=== PATIENT | male | born 1985 | race Caucasian/White ===

== ENCOUNTER 2018-01-11 23:26 | Emergency (ER) | payer SELFPAY ==
[~2018-01-11] VITALS: Ht 172.7 cm; Wt 77.3 kg
[2018-01-12 04:54] LABS: BASOPHILS % (AUTO) 0.8 % (0.0-2.0); EOSINOPHILS % (AUTO) 0.8 % (1.0-6.0); HEMATOCRIT 41.3 % (41-53); HEMOGLOBIN 14.2 g/dL (13.5-17.5); LYMPHOCYTES # (AUTO) 2.1 K/uL (1.0-4.8); LYMPHOCYTES % (AUTO) 24.8 % (22.0-44.0); MEAN CORPUSCULAR HEMOGLOBIN 28.9 pg (26.0-34.0); MEAN CORPUSCULAR HGB CONC 34.3 G/dL (31.0-37.0); MEAN CORPUSCULAR VOLUME 84 fL (80-100); MONOCYTES # (AUTO) 0.9 K/uL (0.1-1.0); MONOCYTES % (AUTO) 10.9 % (2.0-9.0); NEUTROPHILS # (AUTO) 5.4 K/uL (1.8-7.7); NEUTROPHILS % (AUTO) 62.7 % (40.0-70.0); PLATELET COUNT (AUTO) 241 K/uL (150-450); RED CELL DISTRIBUTION WIDTH 13.6 % (11.5-14.5)
[2018-01-12 05:03] LABS: ANION GAP 8 mmol/L (8-16); CALCIUM, TOTAL 9.8 mg/dL (8.8-10.5); CARBON DIOXIDE 33 mmol/L (22-29); CHLORIDE 98 mmol/L (98-107); CREATININE 0.79 mg/dL (0.60-1.30); GLOMERULAR FILTR. RATE CALC > 60 mL/min (>60); GLUCOSE,RANDOM 90 mg/dL (70-110); SODIUM SERUM 139 mmol/L (136-145); UREA NITROGEN, BLOOD 13 mg/dL (7-18)
[2018-01-12 05:25] VITALS: BP 121/76
== END 2018-01-12 05:29 | disposition home or self-care (01) ==
LOC: EMS 23:28
DX: R10.84 Generalized abdominal pain (principal); S90.829A Blister (nonthermal), unspecified foot, initial encounter; X58.XXXA Exposure to other specified factors, initial encounter; Y93.89 Activity, other specified; Y92.89 Other specified places as the place of occurrence of the external cause; Y99.8 Other external cause status
CPT/HCPCS: 99284

== ENCOUNTER 2018-02-01 18:14 | Inpatient (IN) | payer MEDICAID ==
[~2018-02-01] VITALS: Ht 165.1 cm; Wt 66.7 kg
[2018-02-01 19:04] LABS: BASOPHILS % (AUTO) 0.6 % (0.0-2.0); EOSINOPHILS % (AUTO) 0.4 % (1.0-6.0); HEMATOCRIT 39.5 % (41-53); HEMOGLOBIN 13.4 g/dL (13.5-17.5); LYMPHOCYTES # (AUTO) 1.8 K/uL (1.0-4.8); LYMPHOCYTES % (AUTO) 17.6 % (22.0-44.0); MEAN CORPUSCULAR HEMOGLOBIN 28.6 pg (26.0-34.0); MEAN CORPUSCULAR HGB CONC 33.9 G/dL (31.0-37.0); MEAN CORPUSCULAR VOLUME 85 fL (80-100); MONOCYTES % (AUTO) 9.8 % (2.0-9.0); NEUTROPHILS # (AUTO) 7.4 K/uL (1.8-7.7); NEUTROPHILS % (AUTO) 71.6 % (40.0-70.0); PLATELET COUNT (AUTO) 320 K/uL (150-450); RED BLOOD CELL COUNT(AUTO) 4.68 MIL/uL (4.50-5.90); RED CELL DISTRIBUTION WIDTH 13.9 % (11.5-14.5)
[2018-02-01 19:15] LABS: ANION GAP 8 mmol/L (8-16); CALCIUM, TOTAL 9.6 mg/dL (8.8-10.5); CARBON DIOXIDE 30 mmol/L (22-29); CHLORIDE 106 mmol/L (98-107); CREATININE 0.67 mg/dL (0.60-1.30); GLOMERULAR FILTR. RATE CALC > 60 mL/min (>60); GLUCOSE,RANDOM 87 mg/dL (70-110); POTASSIUM 3.3 mmol/L (3.5-5.1); SODIUM SERUM 144 mmol/L (136-145); UREA NITROGEN, BLOOD 33 mg/dL (7-18)
[2018-02-01 19:21] LABS: ALANINE AMINOTRANSFERASE 42 U/L (12-78); ALBUMIN 4.2 g/dL (3.4-5.0); ALKALINE PHOSPHATASE 81 U/L (46-116); ASPARTATE AMINOTRANSFERASE 43 U/L (15-37); BILIRUBIN,TOTAL 0.6 mg/dL (0.1-1.0); TOTAL PROTEIN, SERUM 7.6 g/dL (6.4-8.2)
[2018-02-01] MEDS: POTASSIUM CHLORIDE 20 MEQ ER TABLET PO ONE ×2 (19:50→19:51)
[2018-02-01] MEDS ORDERED: MAGNESIUM HYDROXIDE SUSPENSION 30 ML UDCUP PO PRN (20:00)
[2018-02-01] MEDS ORDERED: MAG HYDROX/AL HYDROX/SIMETH ES 30 ML SUSPENSION UDCUP PO PRN (20:00)
[2018-02-01 21:55] VITALS: BP 112/71
[2018-02-01] MEDS ORDERED: INFLUENZA VIRUS VACCINE QVS 2017-18 (3YR+)/PF 60 MCG/0.5 ML SYRINGE IM ONE (22:00)
[2018-02-02 07:25] VITALS: BP 114/65
[2018-02-02 08:10] VITALS: BP 127/77
[2018-02-02 08:58] LABS: CHOL/HDL RATIO 2.4 (4.2-7.3)
[2018-02-02] MEDS: ARIPiprazole 10 MG TABLET PO SCH ×2 (09:00→10:27)
[2018-02-02] MEDS: HALOPERIDOL 5 MG TABLET PO PRN (10:29)
[2018-02-02] MEDS: LORazepam 2 MG TABLET PO PRN (16:06)
[2018-02-02 16:13] VITALS: BP 118/75
[2018-02-02] MEDS ORDERED: POTASSIUM CHLORIDE 20 MEQ ER TABLET PO ONE (17:15)
[2018-02-02] MEDS: ZOLPIDEM TARTRATE 10 MG TABLET PO PRN (20:48)
[2018-02-03 03:54] VITALS: BP 124/93
[2018-02-03 08:02] VITALS: BP 133/81
[2018-02-03 16:02] VITALS: BP 121/73
[2018-02-03] MEDS: LORazepam 2 MG TABLET PO PRN (16:31)
[2018-02-03] MEDS: HALOPERIDOL 5 MG TABLET PO PRN (16:31)
[2018-02-04 02:37] VITALS: BP 122/68
[2018-02-04] MEDS: HALOPERIDOL 5 MG TABLET PO PRN ×3 (04:18→17:15)
[2018-02-04] MEDS: LORazepam 2 MG TABLET PO PRN ×3 (04:18→17:15)
[2018-02-04] MEDS: ACETAMINOPHEN 325 MG TABLET PO PRN ×2 (04:19→08:46)
[2018-02-04 08:09] VITALS: BP 142/63
[2018-02-04] MEDS: ARIPiprazole 10 MG TABLET PO SCH (08:41)
[2018-02-04 16:17] VITALS: BP 119/69
[2018-02-05] MEDS: LORazepam 2 MG TABLET PO PRN ×3 (00:43→16:05)
[2018-02-05 01:13] VITALS: BP 108/60
[2018-02-05] MEDS: ARIPiprazole 10 MG TABLET PO SCH (08:02)
[2018-02-05 08:04] VITALS: BP 130/72
[2018-02-05 16:01] VITALS: BP 116/61
[2018-02-05] MEDS: HALOPERIDOL 5 MG TABLET PO PRN (16:05)
[2018-02-05] MEDS ORDERED: DiphenhydrAMINE HCL 50 MG/ML VIAL ONE (16:08)
[2018-02-05] MEDS ORDERED: HALOPERIDOL LACTATE 5 MG/ML VIAL ONE (16:08)
[2018-02-05] MEDS ORDERED: LORazepam 2 MG/ML VIAL ONE (16:08)
[2018-02-05] MEDS ORDERED: LORazepam 2 MG/ML VIAL IM ONE (16:15)
[2018-02-05] MEDS ORDERED: HALOPERIDOL LACTATE 5 MG/ML VIAL IM ONE (16:15)
[2018-02-05] MEDS ORDERED: DiphenhydrAMINE HCL 50 MG/ML VIAL IM ONE (16:15)
[2018-02-05] MEDS: DIVALPROEX SODIUM 500 MG DR TABLET PO SCH (21:00)
[2018-02-05] MEDS: ZOLPIDEM TARTRATE 10 MG TABLET PO PRN (21:52)
[2018-02-06 01:42] VITALS: BP 108/64
[2018-02-06] MEDS: ARIPiprazole 10 MG TABLET PO SCH ×2 (08:10→10:50)
[2018-02-06] MEDS: DIVALPROEX SODIUM 500 MG DR TABLET PO SCH ×2 (08:10→20:20)
[2018-02-06 08:30] VITALS: BP 128/87
[2018-02-06] MEDS ORDERED: HALOPERIDOL LACTATE 5 MG/ML VIAL ONE ×2 (11:22)
[2018-02-06] MEDS ORDERED: LORazepam 2 MG/ML VIAL ONE (11:22)
[2018-02-06] MEDS ORDERED: DiphenhydrAMINE HCL 50 MG/ML VIAL ONE (11:23)
[2018-02-06] MEDS ORDERED: HALOPERIDOL LACTATE 5 MG/ML VIAL IM ONE ×2 (12:00→15:45)
[2018-02-06] MEDS ORDERED: LORazepam 2 MG/ML VIAL IM ONE ×2 (12:00→15:45)
[2018-02-06] MEDS ORDERED: DiphenhydrAMINE HCL 50 MG/ML VIAL IM ONE ×2 (12:00→15:45)
[2018-02-06 13:23] VITALS: BP 112/64
[2018-02-06 16:00] VITALS: BP 110/66
[2018-02-06] MEDS: LORazepam 2 MG TABLET PO PRN (20:20)
[2018-02-06] MEDS: ZOLPIDEM TARTRATE 10 MG TABLET PO PRN (20:20)
[2018-02-07 05:10] VITALS: BP 109/72
[2018-02-07 08:00] VITALS: BP 140/64
[2018-02-07] MEDS: ARIPiprazole 10 MG TABLET PO SCH (08:29)
[2018-02-07] MEDS: HALOPERIDOL 5 MG TABLET PO PRN ×2 (08:29→16:33)
[2018-02-07] MEDS: LORazepam 2 MG TABLET PO PRN ×2 (08:29→16:33)
[2018-02-07] MEDS: DIVALPROEX SODIUM 500 MG DR TABLET PO SCH ×2 (08:29→21:00)
[2018-02-07 08:42] LABS: BASOPHILS % (AUTO) 0.7 % (0.0-2.0); EOSINOPHILS % (AUTO) 0.8 % (1.0-6.0); HEMATOCRIT 42.8 % (41-53); HEMOGLOBIN 14.4 g/dL (13.5-17.5); LYMPHOCYTES # (AUTO) 1.1 K/uL (1.0-4.8); LYMPHOCYTES % (AUTO) 16.3 % (22.0-44.0); MEAN CORPUSCULAR HEMOGLOBIN 28.9 pg (26.0-34.0); MEAN CORPUSCULAR HGB CONC 33.5 G/dL (31.0-37.0); MEAN CORPUSCULAR VOLUME 86 fL (80-100); MONOCYTES # (AUTO) 0.5 K/uL (0.1-1.0); MONOCYTES % (AUTO) 7.5 % (2.0-9.0); NEUTROPHILS # (AUTO) 5.2 K/uL (1.8-7.7); NEUTROPHILS % (AUTO) 74.7 % (40.0-70.0); PLATELET COUNT (AUTO) 294 K/uL (150-450); RED BLOOD CELL COUNT(AUTO) 4.97 MIL/uL (4.50-5.90)
[2018-02-07 09:11] LABS: ANION GAP 7 mmol/L (8-16); CALCIUM, TOTAL 9.4 mg/dL (8.8-10.5); CARBON DIOXIDE 32 mmol/L (22-29); CHLORIDE 102 mmol/L (98-107); CREATININE 0.67 mg/dL (0.60-1.30); GLOMERULAR FILTR. RATE CALC > 60 mL/min (>60); GLUCOSE,RANDOM 102 mg/dL (70-110); POTASSIUM 4.9 mmol/L (3.5-5.1); SODIUM SERUM 141 mmol/L (136-145); UREA NITROGEN, BLOOD 20 mg/dL (7-18)
[2018-02-07 16:00] VITALS: BP 119/67
[2018-02-08 00:38] VITALS: BP 122/71
[2018-02-08 08:04] VITALS: BP 129/88
[2018-02-08] MEDS: ARIPiprazole 15 MG TABLET PO SCH (08:04)
[2018-02-08] MEDS: DIVALPROEX SODIUM 500 MG DR TABLET PO SCH (08:04)
[2018-02-08] MEDS: LORazepam 2 MG TABLET PO PRN ×2 (13:17→17:18)
[2018-02-08] MEDS: HALOPERIDOL 5 MG TABLET PO PRN ×2 (13:17→17:18)
[2018-02-08 16:00] VITALS: BP 135/76
[2018-02-09 00:58] VITALS: BP 108/69
[2018-02-09] MEDS: LORazepam 2 MG TABLET PO PRN ×3 (08:19→17:35)
[2018-02-09] MEDS: HALOPERIDOL 5 MG TABLET PO PRN ×3 (08:19→17:35)
[2018-02-09] MEDS: ARIPiprazole 15 MG TABLET PO SCH (08:19)
[2018-02-09 08:27] VITALS: BP 110/72
[2018-02-09 16:00] VITALS: BP 116/69
[2018-02-09] MEDS ORDERED: HALOPERIDOL LACTATE 5 MG/ML VIAL IM ONE ×2 (18:00→18:15)
[2018-02-09] MEDS ORDERED: DiphenhydrAMINE HCL 50 MG/ML VIAL IM ONE ×2 (18:00→18:15)
[2018-02-09] MEDS ORDERED: LORazepam 2 MG/ML VIAL IM ONE ×2 (18:00→18:15)
[2018-02-09] MEDS ORDERED: DiphenhydrAMINE HCL 50 MG/ML VIAL ONE (18:07)
[2018-02-09] MEDS ORDERED: LORazepam 2 MG/ML VIAL ONE (18:07)
[2018-02-09] MEDS ORDERED: HALOPERIDOL LACTATE 5 MG/ML VIAL ONE (18:07)
[2018-02-10 08:14] VITALS: BP 114/67
[2018-02-10] MEDS: ARIPiprazole 15 MG TABLET PO SCH ×2 (08:17→09:40)
[2018-02-10 16:00] VITALS: BP 121/72
[2018-02-10] MEDS: HALOPERIDOL 5 MG TABLET PO PRN (16:11)
[2018-02-10] MEDS: LORazepam 2 MG TABLET PO PRN ×2 (16:11→20:21)
[2018-02-10] MEDS: ZOLPIDEM TARTRATE 10 MG TABLET PO PRN (20:21)
[2018-02-11 05:42] VITALS: BP 106/64
[2018-02-11 08:00] VITALS: BP 131/69
[2018-02-11] MEDS: ARIPiprazole 15 MG TABLET PO SCH (08:23)
[2018-02-11] MEDS ORDERED: DiphenhydrAMINE HCL 50 MG/ML VIAL ONE (15:55)
[2018-02-11] MEDS ORDERED: LORazepam 2 MG/ML VIAL ONE (15:55)
[2018-02-11] MEDS ORDERED: HALOPERIDOL LACTATE 5 MG/ML VIAL ONE (15:55)
[2018-02-11 16:00] VITALS: BP 124/63
[2018-02-11] MEDS ORDERED: HALOPERIDOL LACTATE 5 MG/ML VIAL IM ONE (16:00)
[2018-02-11] MEDS ORDERED: DiphenhydrAMINE HCL 50 MG/ML VIAL IM ONE (16:00)
[2018-02-11] MEDS ORDERED: LORazepam 2 MG/ML VIAL IM ONE (16:00)
[2018-02-11] MEDS: LORazepam 2 MG TABLET PO PRN (20:20)
[2018-02-11] MEDS: HALOPERIDOL 5 MG TABLET PO PRN (20:20)
[2018-02-12 06:08] VITALS: BP 124/71
[2018-02-12] MEDS: HALOPERIDOL 5 MG TABLET PO PRN ×2 (08:01→16:21)
[2018-02-12] MEDS: ARIPiprazole 15 MG TABLET PO SCH (08:01)
[2018-02-12 08:10] VITALS: BP 128/74
[2018-02-12 16:00] VITALS: BP 128/70
[2018-02-12] MEDS: LORazepam 2 MG TABLET PO PRN (16:21)
[2018-02-13 05:21] VITALS: BP 112/85
[2018-02-13 08:22] VITALS: BP 122/72
[2018-02-13] MEDS: ARIPiprazole 15 MG TABLET PO SCH (09:14)
[2018-02-13 16:00] VITALS: BP 121/77
[2018-02-13] MEDS: ZOLPIDEM TARTRATE 10 MG TABLET PO PRN (20:42)
[2018-02-13] MEDS: HALOPERIDOL 5 MG TABLET PO PRN (20:42)
[2018-02-13] MEDS: LORazepam 2 MG TABLET PO PRN (20:42)
[2018-02-14 01:17] VITALS: BP 130/88
[2018-02-14] MEDS: ARIPiprazole 15 MG TABLET PO SCH (08:03)
[2018-02-14 08:11] VITALS: BP 128/86
[2018-02-14] MEDS ORDERED: DiphenhydrAMINE HCL 50 MG/ML VIAL IM ONE (11:30)
[2018-02-14] MEDS ORDERED: LORazepam 2 MG/ML VIAL IM ONE (11:30)
[2018-02-14] MEDS ORDERED: HALOPERIDOL LACTATE 5 MG/ML VIAL IM ONE (11:30)
[2018-02-14] MEDS: LORazepam 2 MG TABLET PO PRN (19:35)
[2018-02-14] MEDS: HALOPERIDOL 5 MG TABLET PO PRN (19:35)
[2018-02-14] MEDS: ZOLPIDEM TARTRATE 10 MG TABLET PO PRN (20:58)
[2018-02-15 01:22] VITALS: BP 117/66
[2018-02-15] MEDS: ARIPiprazole 15 MG TABLET PO SCH (08:26)
[2018-02-15 08:32] VITALS: BP 127/64
[2018-02-15] MEDS: LORazepam 2 MG TABLET PO PRN (10:32)
[2018-02-15] MEDS: HALOPERIDOL 5 MG TABLET PO PRN ×2 (10:32→18:28)
[2018-02-15 16:59] VITALS: BP 136/61
[2018-02-15] MEDS ORDERED: DiphenhydrAMINE HCL 50 MG/ML VIAL ONE (18:43)
[2018-02-15] MEDS ORDERED: HALOPERIDOL LACTATE 5 MG/ML VIAL ONE (18:43)
[2018-02-15] MEDS ORDERED: LORazepam 2 MG/ML VIAL ONE (18:43)
[2018-02-15] MEDS ORDERED: DiphenhydrAMINE HCL 50 MG/ML VIAL IM ONE (18:45)
[2018-02-15] MEDS ORDERED: HALOPERIDOL LACTATE 5 MG/ML VIAL IM ONE (18:45)
[2018-02-15] MEDS ORDERED: LORazepam 2 MG/ML VIAL IM ONE (18:45)
[2018-02-16 03:24] VITALS: BP 122/69
[2018-02-16 08:32] VITALS: BP 128/71
[2018-02-16] MEDS: ARIPiprazole 15 MG TABLET PO SCH (09:01)
[2018-02-16 16:31] VITALS: BP 122/73
[2018-02-16] MEDS: ZOLPIDEM TARTRATE 10 MG TABLET PO PRN (23:02)
[2018-02-17 04:01] VITALS: BP 127/84
[2018-02-17 08:16] VITALS: BP 122/62
[2018-02-17] MEDS: ARIPiprazole 15 MG TABLET PO SCH (09:25)
[2018-02-17] MEDS: HALOPERIDOL 5 MG TABLET PO PRN (16:20)
[2018-02-17] MEDS: LORazepam 2 MG TABLET PO PRN (16:20)
[2018-02-17] MEDS: LITHIUM CARBONATE 300 MG CAPSULE PO SCH (16:20)
[2018-02-17 16:30] VITALS: BP 131/88
[2018-02-17] MEDS ORDERED: LORazepam 2 MG/ML VIAL ONE (18:25)
[2018-02-17] MEDS ORDERED: HALOPERIDOL LACTATE 5 MG/ML VIAL ONE (18:25)
[2018-02-17] MEDS ORDERED: DiphenhydrAMINE HCL 50 MG/ML VIAL ONE (18:25)
[2018-02-17] MEDS ORDERED: DiphenhydrAMINE HCL 50 MG/ML VIAL IM ONE (18:45)
[2018-02-17] MEDS ORDERED: LORazepam 2 MG/ML VIAL IM ONE (18:45)
[2018-02-17] MEDS ORDERED: HALOPERIDOL LACTATE 5 MG/ML VIAL IM ONE (18:45)
[2018-02-18 01:24] VITALS: BP 113/68
[2018-02-18] MEDS: LITHIUM CARBONATE 300 MG CAPSULE PO SCH ×2 (08:04→16:02)
[2018-02-18] MEDS: ARIPiprazole 15 MG TABLET PO SCH (08:04)
[2018-02-18 08:13] VITALS: BP 132/81
[2018-02-18] MEDS ORDERED: HALOPERIDOL LACTATE 5 MG/ML VIAL ONE (08:26)
[2018-02-18] MEDS ORDERED: DiphenhydrAMINE HCL 50 MG/ML VIAL ONE (08:26)
[2018-02-18] MEDS ORDERED: LORazepam 2 MG/ML VIAL ONE (08:27)
[2018-02-18] MEDS ORDERED: LORazepam 2 MG/ML VIAL IM ONE (08:30)
[2018-02-18] MEDS ORDERED: HALOPERIDOL LACTATE 5 MG/ML VIAL IM ONE (08:30)
[2018-02-18] MEDS ORDERED: DiphenhydrAMINE HCL 50 MG/ML VIAL IM ONE (08:30)
[2018-02-18] MEDS: LORazepam 2 MG TABLET PO PRN (16:02)
[2018-02-18] MEDS: HALOPERIDOL 5 MG TABLET PO PRN (16:02)
[2018-02-18 16:36] VITALS: BP 116/60
[2018-02-19] MEDS: ZOLPIDEM TARTRATE 10 MG TABLET PO PRN (00:45)
[2018-02-19] MEDS: HALOPERIDOL 5 MG TABLET PO PRN ×3 (00:45→16:53)
[2018-02-19] MEDS: LORazepam 2 MG TABLET PO PRN ×3 (00:45→16:53)
[2018-02-19 07:05] VITALS: BP 140/83
[2018-02-19 08:41] VITALS: BP 127/74
[2018-02-19] MEDS: LITHIUM CARBONATE 300 MG CAPSULE PO SCH ×2 (08:45→16:53)
[2018-02-19] MEDS: ARIPiprazole 15 MG TABLET PO SCH (08:45)
[2018-02-19] MEDS ORDERED: DiphenhydrAMINE HCL 50 MG/ML VIAL ONE (08:59)
[2018-02-19] MEDS ORDERED: HALOPERIDOL LACTATE 5 MG/ML VIAL ONE (08:59)
[2018-02-19] MEDS ORDERED: LORazepam 2 MG/ML VIAL ONE (09:00)
[2018-02-19] MEDS ORDERED: DiphenhydrAMINE HCL 50 MG/ML VIAL IM ONE ×2 (09:00→18:45)
[2018-02-19] MEDS ORDERED: LORazepam 2 MG/ML VIAL IM ONE ×2 (09:00→18:45)
[2018-02-19] MEDS ORDERED: HALOPERIDOL LACTATE 5 MG/ML VIAL IM ONE ×2 (09:00→18:45)
[2018-02-19 16:00] VITALS: BP 121/72
[2018-02-20 05:50] VITALS: BP 122/79
[2018-02-20] MEDS: LORazepam 2 MG TABLET PO PRN (06:11)
[2018-02-20] MEDS: HALOPERIDOL 5 MG TABLET PO PRN (06:11)
[2018-02-20 08:11] VITALS: BP 113/74
[2018-02-20] MEDS: LITHIUM CARBONATE 300 MG CAPSULE PO SCH ×2 (09:00→17:00)
[2018-02-20] MEDS: ARIPiprazole 15 MG TABLET PO SCH (09:00)
[2018-02-20 21:06] VITALS: BP 118/72
[2018-02-21 03:57] VITALS: BP 123/69
[2018-02-21 08:55] VITALS: BP 130/78
[2018-02-21] MEDS: LITHIUM CARBONATE 600 MG CAPSULE PO SCH ×2 (09:00→16:42)
[2018-02-21] MEDS: ARIPiprazole 15 MG TABLET PO SCH (09:00)
[2018-02-21 16:01] VITALS: BP 108/66
[2018-02-21] MEDS: HALOPERIDOL 5 MG TABLET PO PRN (16:42)
[2018-02-21] MEDS: LORazepam 2 MG TABLET PO PRN (16:42)
[2018-02-21] MEDS: ZOLPIDEM TARTRATE 10 MG TABLET PO PRN (20:18)
[2018-02-22 04:32] VITALS: BP 132/77
[2018-02-22 08:09] VITALS: BP 130/73
[2018-02-22] MEDS: LITHIUM CARBONATE 600 MG CAPSULE PO SCH ×2 (08:42→16:23)
[2018-02-22] MEDS: ARIPiprazole 15 MG TABLET PO SCH (08:43)
[2018-02-22] MEDS ORDERED: LORazepam 2 MG/ML VIAL IM ONE (10:15)
[2018-02-22] MEDS ORDERED: DiphenhydrAMINE HCL 50 MG/ML VIAL IM ONE (10:15)
[2018-02-22] MEDS ORDERED: HALOPERIDOL LACTATE 5 MG/ML VIAL IM ONE (10:15)
[2018-02-22 10:45] VITALS: BP 110/60
[2018-02-22 16:19] VITALS: BP 125/78
[2018-02-22] MEDS: LORazepam 2 MG TABLET PO PRN ×2 (16:23→20:43)
[2018-02-22] MEDS: HALOPERIDOL 5 MG TABLET PO PRN (16:23)
[2018-02-22] MEDS: ZOLPIDEM TARTRATE 10 MG TABLET PO PRN (20:43)
[2018-02-23 04:14] VITALS: BP 124/65
[2018-02-23 08:29] VITALS: BP 134/83
[2018-02-23] MEDS: LORazepam 2 MG TABLET PO PRN ×3 (09:01→17:07)
[2018-02-23] MEDS: HALOPERIDOL 5 MG TABLET PO PRN ×3 (09:01→17:07)
[2018-02-23] MEDS: LITHIUM CARBONATE 600 MG CAPSULE PO SCH ×2 (09:01→17:07)
[2018-02-23] MEDS: ARIPiprazole 15 MG TABLET PO SCH (09:01)
[2018-02-23 16:18] VITALS: BP 119/78
[2018-02-24 02:00] VITALS: BP 134/72
[2018-02-24 08:17] VITALS: BP 132/82
[2018-02-24] MEDS: LITHIUM CARBONATE 600 MG CAPSULE PO SCH ×2 (08:42→17:09)
[2018-02-24] MEDS: ARIPiprazole 15 MG TABLET PO SCH (08:42)
[2018-02-24 16:05] VITALS: BP 114/75
[2018-02-24] MEDS: LORazepam 2 MG TABLET PO PRN (17:09)
[2018-02-24] MEDS: HALOPERIDOL 5 MG TABLET PO PRN (17:09)
[2018-02-24] MEDS: ZOLPIDEM TARTRATE 10 MG TABLET PO PRN (20:54)
[2018-02-25 03:48] VITALS: BP 111/69
[2018-02-25 08:19] VITALS: BP 115/74
[2018-02-25] MEDS: LITHIUM CARBONATE 600 MG CAPSULE PO SCH ×2 (09:53→16:20)
[2018-02-25] MEDS: ARIPiprazole 15 MG TABLET PO SCH (09:53)
[2018-02-25 16:05] VITALS: BP 117/69
[2018-02-25] MEDS: LORazepam 2 MG TABLET PO PRN (16:20)
[2018-02-25] MEDS: HALOPERIDOL 5 MG TABLET PO PRN (16:20)
[2018-02-25] MEDS: ZOLPIDEM TARTRATE 10 MG TABLET PO PRN (20:52)
[2018-02-26 05:11] VITALS: BP 107/64
[2018-02-26 08:10] VITALS: BP 138/79
[2018-02-26] MEDS: ARIPiprazole 15 MG TABLET PO SCH (08:46)
[2018-02-26] MEDS: LITHIUM CARBONATE 600 MG CAPSULE PO SCH ×2 (08:46→16:32)
[2018-02-26] MEDS: LORazepam 2 MG TABLET PO PRN ×3 (08:46→20:34)
[2018-02-26] MEDS: HALOPERIDOL 5 MG TABLET PO PRN (16:32)
[2018-02-26 17:43] VITALS: BP 127/68
[2018-02-26] MEDS: ZOLPIDEM TARTRATE 10 MG TABLET PO PRN (20:34)
[2018-02-27 04:28] VITALS: BP 141/67
[2018-02-27 08:13] VITALS: BP 125/64
[2018-02-27] MEDS: ARIPiprazole 15 MG TABLET PO SCH (08:50)
[2018-02-27] MEDS: LITHIUM CARBONATE 600 MG CAPSULE PO SCH ×2 (08:50→16:45)
[2018-02-27 16:05] VITALS: BP 117/67
[2018-02-27] MEDS: HALOPERIDOL 5 MG TABLET PO PRN (16:45)
[2018-02-27] MEDS: LORazepam 2 MG TABLET PO PRN ×2 (16:45→20:53)
[2018-02-27] MEDS: ZOLPIDEM TARTRATE 10 MG TABLET PO PRN (20:53)
[2018-02-28 03:10] VITALS: BP 112/78
[2018-02-28 08:12] VITALS: BP 132/76
[2018-02-28] MEDS: ARIPiprazole 15 MG TABLET PO SCH (08:43)
[2018-02-28] MEDS: HALOPERIDOL 5 MG TABLET PO PRN ×2 (08:43→16:25)
[2018-02-28] MEDS: LITHIUM CARBONATE 600 MG CAPSULE PO SCH ×2 (08:43→16:26)
[2018-02-28] MEDS: LORazepam 2 MG TABLET PO PRN ×2 (08:43→16:26)
[2018-02-28] MEDS ORDERED: LORazepam 2 MG/ML VIAL ONE (10:10)
[2018-02-28] MEDS ORDERED: DiphenhydrAMINE HCL 50 MG/ML VIAL ONE (10:10)
[2018-02-28] MEDS ORDERED: HALOPERIDOL LACTATE 5 MG/ML VIAL ONE (10:10)
[2018-02-28] MEDS ORDERED: DiphenhydrAMINE HCL 50 MG/ML VIAL IM ONE ×2 (10:15→19:08)
[2018-02-28] MEDS ORDERED: LORazepam 2 MG/ML VIAL IM ONE ×2 (10:15→19:08)
[2018-02-28] MEDS ORDERED: HALOPERIDOL LACTATE 5 MG/ML VIAL IM ONE ×2 (10:15→19:08)
[2018-02-28 16:33] VITALS: BP 119/66
[2018-03-01 00:10] VITALS: BP 123/77
[2018-03-01] MEDS ORDERED: HALOPERIDOL LACTATE 5 MG/ML VIAL ONE (07:50)
[2018-03-01] MEDS ORDERED: LORazepam 2 MG/ML VIAL ONE (07:50)
[2018-03-01] MEDS ORDERED: DiphenhydrAMINE HCL 50 MG/ML VIAL ONE (07:50)
[2018-03-01 08:00] VITALS: BP 123/78
[2018-03-01] MEDS ORDERED: HALOPERIDOL LACTATE 5 MG/ML VIAL IM ONE ×2 (08:00→10:30)
[2018-03-01] MEDS ORDERED: LORazepam 2 MG/ML VIAL IM ONE ×2 (08:00→10:30)
[2018-03-01] MEDS ORDERED: DiphenhydrAMINE HCL 50 MG/ML VIAL IM ONE ×2 (08:00→10:30)
[2018-03-01] MEDS: LITHIUM CARBONATE 600 MG CAPSULE PO SCH (08:09)
[2018-03-01] MEDS: ARIPiprazole 15 MG TABLET PO SCH (08:09)
[2018-03-01] MEDS ORDERED: HALO5TAB2 PO (11:01)
[2018-03-01] MEDS ORDERED: ARIP15TA2 PO (11:01)
[2018-03-01] MEDS ORDERED: ZOLP10TA7 PO (11:01)
[2018-03-01] MEDS ORDERED: LITH600 PO (11:01)
[2018-03-01] MEDS ORDERED: LORA2TAB2 PO (11:01)
[2018-03-01] MEDS: LITHIUM CARBONATE 300 MG CAPSULE PO SCH (16:14)
[2018-03-01 16:28] VITALS: BP 114/69
[2018-03-01] MEDS: HALOPERIDOL 5 MG TABLET PO PRN (16:51)
[2018-03-01] MEDS: LORazepam 2 MG TABLET PO PRN (16:51)
[2018-03-01] MEDS: ZOLPIDEM TARTRATE 10 MG TABLET PO PRN (20:35)
[2018-03-02 06:28] VITALS: BP 118/71
[2018-03-02 08:23] VITALS: BP 147/95
[2018-03-02] MEDS: ARIPiprazole 10 MG TABLET PO SCH (08:45)
[2018-03-02] MEDS: LITHIUM CARBONATE 600 MG CAPSULE PO SCH (08:46)
[2018-03-02 16:40] VITALS: BP 128/83
[2018-03-02] MEDS: LITHIUM CARBONATE 300 MG CAPSULE PO SCH (16:51)
[2018-03-02] MEDS: HALOPERIDOL 5 MG TABLET PO PRN (16:52)
[2018-03-02] MEDS: LORazepam 2 MG TABLET PO PRN (16:52)
[2018-03-02] MEDS: ZOLPIDEM TARTRATE 10 MG TABLET PO PRN (21:11)
[2018-03-03 04:44] VITALS: BP 123/71
[2018-03-03 08:18] VITALS: BP 140/76
[2018-03-03] MEDS: LITHIUM CARBONATE 600 MG CAPSULE PO SCH (08:45)
[2018-03-03] MEDS: ARIPiprazole 10 MG TABLET PO SCH (08:45)
[2018-03-03 16:32] VITALS: BP 132/86
[2018-03-03] MEDS: HALOPERIDOL 5 MG TABLET PO PRN (16:54)
[2018-03-03] MEDS: LITHIUM CARBONATE 300 MG CAPSULE PO SCH (16:54)
[2018-03-03] MEDS: LORazepam 2 MG TABLET PO PRN (16:54)
[2018-03-03] MEDS: ZOLPIDEM TARTRATE 10 MG TABLET PO PRN (20:23)
[2018-03-04] MEDS: HALOPERIDOL 5 MG TABLET PO PRN ×3 (01:57→16:44)
[2018-03-04] MEDS: LORazepam 2 MG TABLET PO PRN ×3 (01:57→16:44)
[2018-03-04 03:11] VITALS: BP 124/64
[2018-03-04 08:16] VITALS: BP 122/68
[2018-03-04] MEDS: ARIPiprazole 10 MG TABLET PO SCH (08:46)
[2018-03-04] MEDS: LITHIUM CARBONATE 600 MG CAPSULE PO SCH (08:46)
[2018-03-04 16:21] VITALS: BP 122/78
[2018-03-04] MEDS: LITHIUM CARBONATE 300 MG CAPSULE PO SCH (16:43)
[2018-03-05 06:37] VITALS: BP 122/72
[2018-03-05] MEDS: LITHIUM CARBONATE 600 MG CAPSULE PO SCH (08:35)
[2018-03-05] MEDS: ARIPiprazole 10 MG TABLET PO SCH (08:36)
[2018-03-05] MEDS: LORazepam 2 MG TABLET PO PRN ×2 (08:36→16:47)
[2018-03-05] MEDS: HALOPERIDOL 5 MG TABLET PO PRN ×2 (08:36→16:47)
[2018-03-05 08:39] VITALS: BP 135/81
[2018-03-05] MEDS ORDERED: LORazepam 2 MG/ML VIAL ONE (13:09)
[2018-03-05] MEDS ORDERED: HALOPERIDOL LACTATE 5 MG/ML VIAL ONE (13:09)
[2018-03-05] MEDS ORDERED: DiphenhydrAMINE HCL 50 MG/ML VIAL ONE (13:09)
[2018-03-05] MEDS ORDERED: DiphenhydrAMINE HCL 50 MG/ML VIAL IM ONE (13:45)
[2018-03-05] MEDS ORDERED: LORazepam 2 MG/ML VIAL IM ONE (13:45)
[2018-03-05] MEDS ORDERED: HALOPERIDOL LACTATE 5 MG/ML VIAL IM ONE (13:45)
[2018-03-05 14:15] VITALS: BP 123/70
[2018-03-05 16:03] VITALS: BP 123/68
[2018-03-05] MEDS: LITHIUM CARBONATE 300 MG CAPSULE PO SCH (16:47)
[2018-03-06] MEDS: LORazepam 2 MG TABLET PO PRN ×3 (01:41→20:28)
[2018-03-06] MEDS: ZOLPIDEM TARTRATE 10 MG TABLET PO PRN ×2 (01:41→20:28)
[2018-03-06 01:46] VITALS: BP 137/75
[2018-03-06] MEDS: LITHIUM CARBONATE 600 MG CAPSULE PO SCH ×2 (08:46→09:06)
[2018-03-06] MEDS: ARIPiprazole 10 MG TABLET PO SCH ×2 (08:46→09:06)
[2018-03-06 10:21] VITALS: BP 132/83
[2018-03-06] MEDS ORDERED: LORazepam 2 MG/ML VIAL IM ONE (13:15)
[2018-03-06] MEDS ORDERED: DiphenhydrAMINE HCL 50 MG/ML VIAL IM ONE (13:15)
[2018-03-06] MEDS ORDERED: HALOPERIDOL LACTATE 5 MG/ML VIAL IM ONE (13:15)
[2018-03-06] MEDS: LITHIUM CARBONATE 300 MG CAPSULE PO SCH (16:21)
[2018-03-06] MEDS: HALOPERIDOL 5 MG TABLET PO PRN (16:22)
[2018-03-06 17:15] VITALS: BP 123/74
[2018-03-07 04:47] VITALS: BP 116/63
[2018-03-07] MEDS ORDERED: LORazepam 2 MG/ML VIAL ONE (05:22)
[2018-03-07] MEDS ORDERED: HALOPERIDOL LACTATE 5 MG/ML VIAL IM ONE (05:30)
[2018-03-07] MEDS ORDERED: DiphenhydrAMINE HCL 50 MG/ML VIAL IM ONE (05:30)
[2018-03-07] MEDS ORDERED: LORazepam 2 MG/ML VIAL IM ONE (05:30)
[2018-03-07] MEDS: LITHIUM CARBONATE 600 MG CAPSULE PO SCH (10:05)
[2018-03-07 16:23] VITALS: BP 134/75
[2018-03-07] MEDS: LITHIUM CARBONATE 300 MG CAPSULE PO SCH (17:00)
[2018-03-08 08:26] VITALS: BP 133/84
[2018-03-08] MEDS: ARIPiprazole 15 MG TABLET PO SCH (09:00)
[2018-03-08] MEDS: LITHIUM CARBONATE 600 MG CAPSULE PO SCH (09:00)
[2018-03-08] MEDS: LITHIUM CARBONATE 300 MG CAPSULE PO SCH (17:00)
[2018-03-08] MEDS: HALOPERIDOL 5 MG TABLET PO PRN (21:56)
[2018-03-08] MEDS: LORazepam 2 MG TABLET PO PRN (21:56)
[2018-03-09 07:09] VITALS: BP 122/74
[2018-03-09 08:17] VITALS: BP 126/70
[2018-03-09] MEDS: LITHIUM CARBONATE 600 MG CAPSULE PO SCH (09:11)
[2018-03-09] MEDS: ARIPiprazole 15 MG TABLET PO SCH (09:12)
[2018-03-09] MEDS: HALOPERIDOL 5 MG TABLET PO PRN (09:12)
[2018-03-09] MEDS: LORazepam 2 MG TABLET PO PRN (09:12)
[2018-03-09] MEDS ORDERED: LORazepam 2 MG/ML VIAL IM ONE (14:00)
[2018-03-09] MEDS ORDERED: HALOPERIDOL LACTATE 5 MG/ML VIAL IM ONE (14:00)
[2018-03-09] MEDS ORDERED: DiphenhydrAMINE HCL 50 MG/ML VIAL IM ONE (14:00)
[2018-03-09 16:32] VITALS: BP 128/82
[2018-03-09] MEDS: LITHIUM CARBONATE 300 MG CAPSULE PO SCH (17:00)
[2018-03-10] MEDS: ZOLPIDEM TARTRATE 10 MG TABLET PO PRN (01:40)
[2018-03-10] MEDS: HALOPERIDOL 5 MG TABLET PO PRN ×2 (01:40→16:49)
[2018-03-10] MEDS: LORazepam 2 MG TABLET PO PRN ×2 (01:40→16:49)
[2018-03-10 03:20] VITALS: BP 134/77
[2018-03-10] MEDS: LITHIUM CARBONATE 600 MG CAPSULE PO SCH (08:02)
[2018-03-10] MEDS: ARIPiprazole 15 MG TABLET PO SCH (08:02)
[2018-03-10 08:20] VITALS: BP 136/85
[2018-03-10 16:05] VITALS: BP 129/89
[2018-03-10] MEDS: LITHIUM CARBONATE 300 MG CAPSULE PO SCH (17:08)
[2018-03-10] MEDS ORDERED: LORazepam 2 MG/ML VIAL IM ONE (18:00)
[2018-03-10] MEDS ORDERED: HALOPERIDOL LACTATE 5 MG/ML VIAL IM ONE (18:00)
[2018-03-10] MEDS ORDERED: DiphenhydrAMINE HCL 50 MG/ML VIAL IM ONE (18:00)
[2018-03-11 02:48] VITALS: BP 130/78
[2018-03-11] MEDS: ARIPiprazole 15 MG TABLET PO SCH (08:09)
[2018-03-11] MEDS: LITHIUM CARBONATE 600 MG CAPSULE PO SCH (08:09)
[2018-03-11 09:59] VITALS: BP 132/83
[2018-03-11 16:05] VITALS: BP 134/82
[2018-03-11] MEDS: HALOPERIDOL 5 MG TABLET PO PRN (16:44)
[2018-03-11] MEDS: LITHIUM CARBONATE 300 MG CAPSULE PO SCH (16:44)
[2018-03-11] MEDS: LORazepam 2 MG TABLET PO PRN (16:44)
[2018-03-12 04:35] VITALS: BP 108/67
[2018-03-12 08:11] VITALS: BP 128/82
[2018-03-12] MEDS: ARIPiprazole 15 MG TABLET PO SCH ×2 (09:00→09:56)
[2018-03-12] MEDS: LITHIUM CARBONATE 600 MG CAPSULE PO SCH ×2 (09:00→09:56)
[2018-03-12] MEDS: LORazepam 2 MG TABLET PO PRN (13:47)
[2018-03-12 16:48] VITALS: BP 121/88
[2018-03-12] MEDS: LITHIUM CARBONATE 300 MG CAPSULE PO SCH (17:05)
[2018-03-12] MEDS: HALOPERIDOL 5 MG TABLET PO PRN (17:05)
[2018-03-12] MEDS: ZOLPIDEM TARTRATE 10 MG TABLET PO PRN (20:52)
[2018-03-13 01:11] VITALS: BP 128/75
[2018-03-13] MEDS ORDERED: LORazepam 2 MG/ML VIAL ONE (05:06)
[2018-03-13] MEDS ORDERED: HALOPERIDOL LACTATE 5 MG/ML VIAL ONE (05:07)
[2018-03-13] MEDS ORDERED: DiphenhydrAMINE HCL 50 MG/ML VIAL ONE (05:07)
[2018-03-13] MEDS ORDERED: DiphenhydrAMINE HCL 50 MG/ML VIAL IM ONE (05:15)
[2018-03-13] MEDS ORDERED: HALOPERIDOL LACTATE 5 MG/ML VIAL IM ONE (05:15)
[2018-03-13] MEDS ORDERED: LORazepam 2 MG/ML VIAL IM ONE (05:15)
[2018-03-13] MEDS: ARIPiprazole 15 MG TABLET PO SCH (09:00)
[2018-03-13] MEDS: LITHIUM CARBONATE 600 MG CAPSULE PO SCH (09:00)
[2018-03-13 16:21] VITALS: BP 124/67
[2018-03-13] MEDS: LITHIUM CARBONATE 300 MG CAPSULE PO SCH (16:25)
[2018-03-13] MEDS: LORazepam 2 MG TABLET PO PRN (16:26)
[2018-03-13] MEDS: HALOPERIDOL 5 MG TABLET PO PRN (16:26)
[2018-03-14] MEDS: ARIPiprazole 15 MG TABLET PO SCH (08:14)
[2018-03-14] MEDS: LITHIUM CARBONATE 600 MG CAPSULE PO SCH (08:14)
[2018-03-14 08:16] VITALS: BP 148/76
[2018-03-14] MEDS: OLANZapine 5 MG TABLET PO SCH ×2 (09:00→20:47)
[2018-03-14] MEDS: LITHIUM CARBONATE 300 MG CAPSULE PO SCH (16:24)
[2018-03-14] MEDS: LORazepam 2 MG TABLET PO PRN (16:24)
[2018-03-14] MEDS: HALOPERIDOL 5 MG TABLET PO PRN (16:24)
[2018-03-15 05:19] VITALS: BP 132/79
[2018-03-15] MEDS: LITHIUM CARBONATE 600 MG CAPSULE PO SCH (08:10)
[2018-03-15] MEDS: ARIPiprazole 15 MG TABLET PO SCH (08:10)
[2018-03-15] MEDS: OLANZapine 5 MG TABLET PO SCH ×2 (08:10→20:49)
[2018-03-15 08:28] VITALS: BP 136/83
[2018-03-15 16:05] VITALS: BP 134/84
[2018-03-15] MEDS: LORazepam 2 MG TABLET PO PRN (17:13)
[2018-03-15] MEDS: LITHIUM CARBONATE 300 MG CAPSULE PO SCH (17:13)
[2018-03-15] MEDS: HALOPERIDOL 5 MG TABLET PO PRN (17:13)
[2018-03-15] MEDS: ZOLPIDEM TARTRATE 10 MG TABLET PO PRN (20:49)
[2018-03-16 00:29] VITALS: BP 136/75
[2018-03-16] MEDS: ARIPiprazole 15 MG TABLET PO SCH (07:58)
[2018-03-16] MEDS: OLANZapine 5 MG TABLET PO SCH ×2 (07:58→21:00)
[2018-03-16] MEDS: LORazepam 2 MG TABLET PO PRN ×2 (07:58→18:07)
[2018-03-16] MEDS: LITHIUM CARBONATE 600 MG CAPSULE PO SCH (07:58)
[2018-03-16] MEDS: HALOPERIDOL 5 MG TABLET PO PRN ×2 (07:58→18:07)
[2018-03-16] MEDS ORDERED: HALOPERIDOL LACTATE 5 MG/ML VIAL ONE (13:18)
[2018-03-16] MEDS ORDERED: LORazepam 2 MG/ML VIAL ONE (13:19)
[2018-03-16] MEDS ORDERED: DiphenhydrAMINE HCL 50 MG/ML VIAL ONE (13:19)
[2018-03-16] MEDS ORDERED: HALOPERIDOL LACTATE 5 MG/ML VIAL IM ONE ×2 (13:30→19:45)
[2018-03-16] MEDS ORDERED: LORazepam 2 MG/ML VIAL IM ONE ×2 (13:30→19:45)
[2018-03-16] MEDS ORDERED: DiphenhydrAMINE HCL 50 MG/ML VIAL IM ONE ×2 (13:30→19:45)
[2018-03-16] MEDS: LITHIUM CARBONATE 300 MG CAPSULE PO SCH (17:30)
[2018-03-17] MEDS: OLANZapine 5 MG TABLET PO SCH ×2 (08:40→20:10)
[2018-03-17] MEDS: ARIPiprazole 15 MG TABLET PO SCH (08:40)
[2018-03-17] MEDS: LITHIUM CARBONATE 600 MG CAPSULE PO SCH (08:40)
[2018-03-17 16:05] VITALS: BP 128/66
[2018-03-17] MEDS: LITHIUM CARBONATE 300 MG CAPSULE PO SCH (17:27)
[2018-03-17] MEDS: LORazepam 2 MG TABLET PO PRN (17:27)
[2018-03-17] MEDS: HALOPERIDOL 5 MG TABLET PO PRN (17:27)
[2018-03-17] MEDS ORDERED: DiphenhydrAMINE HCL 50 MG/ML VIAL IM ONE (20:00)
[2018-03-17] MEDS ORDERED: HALOPERIDOL LACTATE 5 MG/ML VIAL IM ONE (20:00)
[2018-03-17] MEDS ORDERED: LORazepam 2 MG/ML VIAL IM ONE (20:00)
[2018-03-18] MEDS: LORazepam 2 MG TABLET PO PRN ×2 (08:18→16:55)
[2018-03-18] MEDS: OLANZapine 5 MG TABLET PO SCH ×2 (09:00→20:38)
[2018-03-18] MEDS: ARIPiprazole 15 MG TABLET PO SCH (09:00)
[2018-03-18] MEDS: LITHIUM CARBONATE 600 MG CAPSULE PO SCH (09:00)
[2018-03-18 09:08] VITALS: BP 136/82
[2018-03-18 16:02] VITALS: BP 118/73
[2018-03-18] MEDS: LITHIUM CARBONATE 300 MG CAPSULE PO SCH (16:55)
[2018-03-18] MEDS: HALOPERIDOL 5 MG TABLET PO PRN (16:55)
[2018-03-18] MEDS: ZOLPIDEM TARTRATE 10 MG TABLET PO PRN (20:38)
[2018-03-19 08:54] VITALS: BP 126/75
[2018-03-19] MEDS: LORazepam 2 MG TABLET PO PRN ×3 (09:51→20:49)
[2018-03-19] MEDS: HALOPERIDOL 5 MG TABLET PO PRN ×2 (09:51→16:32)
[2018-03-19] MEDS: ARIPiprazole 15 MG TABLET PO SCH (09:51)
[2018-03-19] MEDS: LITHIUM CARBONATE 600 MG CAPSULE PO SCH (09:51)
[2018-03-19] MEDS: OLANZapine 5 MG TABLET PO SCH ×2 (10:13→20:46)
[2018-03-19 16:08] VITALS: BP 139/89
[2018-03-19] MEDS: LITHIUM CARBONATE 300 MG CAPSULE PO SCH (16:32)
[2018-03-19] MEDS: ZOLPIDEM TARTRATE 10 MG TABLET PO PRN (20:49)
[2018-03-20 05:06] VITALS: BP 134/77
[2018-03-20 08:00] VITALS: BP 130/63
[2018-03-20] MEDS: ARIPiprazole 15 MG TABLET PO SCH (08:03)
[2018-03-20] MEDS: LITHIUM CARBONATE 600 MG CAPSULE PO SCH (08:03)
[2018-03-20] MEDS: OLANZapine 5 MG TABLET PO SCH (08:04)
[2018-03-20] MEDS ORDERED: LITH300C3 PO ×2 (11:01→11:31)
[2018-03-20] MEDS ORDERED: LITH600 PO (11:01)
[2018-03-20] MEDS ORDERED: ARIP15TA2 PO (11:01)
[2018-03-20] MEDS ORDERED: OLAN5TAB27 PO (11:01)
[2018-03-20] MEDS ORDERED: OLAN5TAB2 PO (11:31)
[2018-03-20] MEDS ORDERED: HALOPERIDOL LACTATE 5 MG/ML VIAL ONE (14:33)
[2018-03-20] MEDS ORDERED: DiphenhydrAMINE HCL 50 MG/ML VIAL ONE (14:34)
[2018-03-20] MEDS ORDERED: LORazepam 2 MG/ML VIAL ONE (14:34)
== END 2018-03-20 13:15 | disposition home or self-care (01) | DRG 750 ==
LOC: EMS 18:15 → B3A 20:00
PROVIDERS: ADMIT Psychiatry & Neurology Psychiatry
DX: F25.0 Schizoaffective disorder, bipolar type (principal); R56.9 Unspecified convulsions; F79 Unspecified intellectual disabilities; R45.87 Impulsiveness; Z59.0 Homelessness; Z79.899 Other long term (current) drug therapy
CPT/HCPCS: 84132; 87081; 90471; 99285; G0480; J1200; J1630; J2060

== ENCOUNTER 2018-02-20 16:27 | Emergency (ER) | payer MEDICAID ==
[~2018-02-20] VITALS: Ht 162.6 cm; Wt 58.2 kg
[2018-02-20] MEDS ORDERED: DiphenhydrAMINE HCL 50 MG/ML VIAL IM ONE (19:00)
[2018-02-20] MEDS ORDERED: LORazepam 2 MG/ML VIAL IM ONE (19:00)
[2018-02-20] MEDS ORDERED: HALOPERIDOL LACTATE 5 MG/ML VIAL IM ONE (19:00)
[2018-02-20 19:36] VITALS: BP 111/73
== END 2018-02-20 20:27 | disposition home or self-care (01) ==
LOC: EMS 16:30
DX: R07.89 Other chest pain (principal)
CPT/HCPCS: 71045; 93005; 96372; 99284; J1200; J1630; J2060

== ENCOUNTER 2018-03-01 10:45 | Emergency (ER) | payer MEDICAID, OTHER ==
[~2018-03-01] VITALS: Ht 162.6 cm; Wt 61.4 kg
[2018-03-01 10:53] VITALS: BP 119/86
[2018-03-01] MEDS ORDERED: HALO5 PO (11:01)
[2018-03-01] MEDS ORDERED: LORA2TAB2 PO (11:01)
[2018-03-01] MEDS ORDERED: ZOLP10TA7 PO (11:01)
[2018-03-01] MEDS ORDERED: ARIP15TA2 PO (11:01)
[2018-03-01] MEDS ORDERED: LITH600 PO (11:01)
== END 2018-03-01 12:30 | disposition home or self-care (01) ==
LOC: EMS 10:48
DX: S00.83XA Contusion of other part of head, initial encounter (principal); Y04.0XXA Assault by unarmed brawl or fight, initial encounter; Y93.89 Activity, other specified; Y92.89 Other specified places as the place of occurrence of the external cause; Y99.8 Other external cause status
CPT/HCPCS: 99283

== ENCOUNTER 2018-03-20 14:30 | Inpatient (IN) | payer MEDICAID, OTHER ==
[~2018-03-20] VITALS: Ht 165.1 cm; Wt 60.8 kg
[~2018-03-20 14:30] MED LIST: ARIP15TA2 PO; HALO5 PO; LITH300C3 PO; LITH600 PO; LORA2TAB2 PO; OLAN5TAB2 PO; OLAN5TAB27 PO; ZOLP10TA7 PO
[2018-03-20] MEDS ORDERED: DiphenhydrAMINE HCL 50 MG/ML VIAL IM ONE (14:45)
[2018-03-20] MEDS ORDERED: LORazepam 2 MG/ML VIAL IM ONE (14:45)
[2018-03-20] MEDS ORDERED: HALOPERIDOL LACTATE 5 MG/ML VIAL IM ONE (14:45)
[2018-03-20 16:05] VITALS: BP 116/76
[2018-03-20] MEDS: LITHIUM CARBONATE 300 MG CAPSULE PO SCH (17:00)
[2018-03-20] MEDS: OLANZapine 5 MG TABLET PO SCH (20:26)
[2018-03-20] MEDS: ZOLPIDEM TARTRATE 10 MG TABLET PO PRN (21:29)
[2018-03-21 02:48] VITALS: BP 122/72
[2018-03-21] MEDS ORDERED: LITHIUM CARBONATE 600 MG CAPSULE PO SCH (09:00)
[2018-03-21] MEDS: ARIPiprazole 15 MG TABLET PO SCH (09:27)
[2018-03-21] MEDS: OLANZapine 5 MG TABLET PO SCH ×2 (09:28→20:54)
[2018-03-21] MEDS: HALOPERIDOL 5 MG TABLET PO PRN ×2 (09:28→17:30)
[2018-03-21] MEDS: LORazepam 2 MG TABLET PO PRN ×2 (09:28→17:31)
[2018-03-21 16:00] VITALS: BP 138/86
[2018-03-21] MEDS ORDERED: LITHIUM CARBONATE 300 MG CAPSULE PO SCH (17:00)
[2018-03-21] MEDS: LITHIUM CARBONATE 300 MG CAPSULE PO SCH (17:30)
[2018-03-21] MEDS: ZOLPIDEM TARTRATE 10 MG TABLET PO PRN (20:54)
[2018-03-22 06:32] VITALS: BP 129/83
[2018-03-22] MEDS: LORazepam 2 MG TABLET PO PRN ×2 (08:35→16:10)
[2018-03-22] MEDS: LITHIUM CARBONATE 600 MG CAPSULE PO SCH (08:35)
[2018-03-22] MEDS: OLANZapine 5 MG TABLET PO SCH ×2 (08:35→20:34)
[2018-03-22] MEDS: ARIPiprazole 15 MG TABLET PO SCH (08:35)
[2018-03-22] MEDS ORDERED: LORazepam 2 MG/ML VIAL ONE (12:16)
[2018-03-22] MEDS ORDERED: HALOPERIDOL LACTATE 5 MG/ML VIAL ONE (12:16)
[2018-03-22] MEDS ORDERED: DiphenhydrAMINE HCL 50 MG/ML VIAL ONE (12:16)
[2018-03-22] MEDS ORDERED: HALOPERIDOL LACTATE 5 MG/ML VIAL IM ONE (12:30)
[2018-03-22] MEDS ORDERED: LORazepam 2 MG/ML VIAL IM ONE (12:30)
[2018-03-22] MEDS ORDERED: DiphenhydrAMINE HCL 50 MG/ML VIAL IM ONE (12:30)
[2018-03-22 16:03] VITALS: BP 136/83
[2018-03-22] MEDS: HALOPERIDOL 5 MG TABLET PO PRN (16:10)
[2018-03-22] MEDS: LITHIUM CARBONATE 300 MG CAPSULE PO SCH (16:10)
[2018-03-23 01:26] VITALS: BP 123/77
[2018-03-23] MEDS: LITHIUM CARBONATE 600 MG CAPSULE PO SCH (08:06)
[2018-03-23] MEDS: LORazepam 2 MG TABLET PO PRN ×3 (08:06→20:24)
[2018-03-23] MEDS: ARIPiprazole 15 MG TABLET PO SCH (08:06)
[2018-03-23] MEDS: OLANZapine 5 MG TABLET PO SCH ×2 (08:06→20:24)
[2018-03-23] MEDS: HALOPERIDOL 5 MG TABLET PO PRN ×2 (08:06→16:10)
[2018-03-23 08:25] VITALS: BP 138/81
[2018-03-23 16:00] VITALS: BP 134/80
[2018-03-23] MEDS: LITHIUM CARBONATE 300 MG CAPSULE PO SCH (16:10)
[2018-03-23] MEDS: ZOLPIDEM TARTRATE 10 MG TABLET PO PRN (20:24)
[2018-03-24 00:57] VITALS: BP 127/87
[2018-03-24] MEDS ORDERED: DiphenhydrAMINE HCL 50 MG/ML VIAL IM ONE (02:00)
[2018-03-24] MEDS ORDERED: HALOPERIDOL LACTATE 5 MG/ML VIAL IM ONE (02:00)
[2018-03-24] MEDS ORDERED: LORazepam 2 MG/ML VIAL IM ONE (02:00)
[2018-03-24 08:15] VITALS: BP 139/74
[2018-03-24] MEDS: OLANZapine 5 MG TABLET PO SCH (09:01)
[2018-03-24] MEDS: LITHIUM CARBONATE 600 MG CAPSULE PO SCH (09:01)
[2018-03-24] MEDS: ARIPiprazole 15 MG TABLET PO SCH (09:02)
[2018-03-24] MEDS: LORazepam 2 MG TABLET PO PRN ×2 (14:22→20:33)
[2018-03-24] MEDS: LITHIUM CARBONATE 300 MG CAPSULE PO SCH (17:00)
[2018-03-24] MEDS: HALOPERIDOL 5 MG TABLET PO PRN (20:32)
[2018-03-24] MEDS: OLANZapine 10 MG TABLET PO SCH (20:32)
[2018-03-25 08:15] VITALS: BP 128/62
[2018-03-25] MEDS: LITHIUM CARBONATE 600 MG CAPSULE PO SCH (08:26)
[2018-03-25] MEDS: OLANZapine 5 MG TABLET PO SCH (08:26)
[2018-03-25] MEDS: ARIPiprazole 15 MG TABLET PO SCH (08:27)
[2018-03-25 16:05] VITALS: BP 111/66
[2018-03-25] MEDS: LORazepam 2 MG TABLET PO PRN (17:18)
[2018-03-25] MEDS: HALOPERIDOL 5 MG TABLET PO PRN (17:18)
[2018-03-25] MEDS: LITHIUM CARBONATE 300 MG CAPSULE PO SCH (17:18)
[2018-03-25] MEDS: OLANZapine 10 MG TABLET PO SCH (20:30)
[2018-03-26 00:39] VITALS: BP 139/84
[2018-03-26 08:08] VITALS: BP 135/85
[2018-03-26] MEDS: OLANZapine 5 MG TABLET PO SCH (08:17)
[2018-03-26] MEDS: ARIPiprazole 15 MG TABLET PO SCH (08:17)
[2018-03-26] MEDS: LITHIUM CARBONATE 600 MG CAPSULE PO SCH (08:17)
[2018-03-26 16:00] VITALS: BP 139/77
[2018-03-26] MEDS: HALOPERIDOL 5 MG TABLET PO PRN (16:51)
[2018-03-26] MEDS: LITHIUM CARBONATE 300 MG CAPSULE PO SCH (16:51)
[2018-03-26] MEDS: LORazepam 2 MG TABLET PO PRN (16:52)
[2018-03-26] MEDS: ZOLPIDEM TARTRATE 10 MG TABLET PO PRN (20:58)
[2018-03-26] MEDS: OLANZapine 10 MG TABLET PO SCH (20:58)
[2018-03-27 04:55] VITALS: BP 146/86
[2018-03-27 08:07] VITALS: BP 134/74
[2018-03-27] MEDS: LITHIUM CARBONATE 600 MG CAPSULE PO SCH (08:43)
[2018-03-27] MEDS: ARIPiprazole 15 MG TABLET PO SCH (08:43)
[2018-03-27] MEDS: OLANZapine 5 MG TABLET PO SCH (08:43)
[2018-03-27] MEDS: LORazepam 2 MG TABLET PO PRN ×2 (10:23→16:33)
[2018-03-27 16:00] VITALS: BP 130/79
[2018-03-27] MEDS: LITHIUM CARBONATE 300 MG CAPSULE PO SCH (16:33)
[2018-03-27] MEDS: HALOPERIDOL 5 MG TABLET PO PRN (16:33)
[2018-03-27] MEDS: OLANZapine 10 MG TABLET PO SCH (20:43)
[2018-03-28 06:30] VITALS: BP 125/81
[2018-03-28 08:17] VITALS: BP 128/69
[2018-03-28] MEDS: ARIPiprazole 15 MG TABLET PO SCH (08:20)
[2018-03-28] MEDS: LITHIUM CARBONATE 600 MG CAPSULE PO SCH (08:20)
[2018-03-28] MEDS: LORazepam 2 MG TABLET PO PRN ×2 (08:21→16:12)
[2018-03-28] MEDS: OLANZapine 5 MG TABLET PO SCH (08:21)
[2018-03-28 16:00] VITALS: BP 121/68
[2018-03-28] MEDS: HALOPERIDOL 5 MG TABLET PO PRN (16:12)
[2018-03-28] MEDS: LITHIUM CARBONATE 300 MG CAPSULE PO SCH (16:12)
[2018-03-28] MEDS: OLANZapine 10 MG TABLET PO SCH (20:47)
[2018-03-29 03:27] VITALS: BP 122/74
[2018-03-29 08:51] VITALS: BP 138/84
[2018-03-29] MEDS: LITHIUM CARBONATE 600 MG CAPSULE PO SCH (08:55)
[2018-03-29] MEDS: OLANZapine 5 MG TABLET PO SCH (08:55)
[2018-03-29] MEDS: ARIPiprazole 15 MG TABLET PO SCH (08:55)
[2018-03-29 16:28] VITALS: BP 137/95
[2018-03-29] MEDS: HALOPERIDOL 5 MG TABLET PO PRN (17:21)
[2018-03-29] MEDS: LORazepam 2 MG TABLET PO PRN (17:21)
[2018-03-29] MEDS: LITHIUM CARBONATE 300 MG CAPSULE PO SCH (17:21)
[2018-03-29] MEDS: OLANZapine 10 MG TABLET PO SCH (20:48)
[2018-03-30 05:22] VITALS: BP 122/86
[2018-03-30] MEDS: ARIPiprazole 15 MG TABLET PO SCH (08:42)
[2018-03-30] MEDS: OLANZapine 5 MG TABLET PO SCH (08:42)
[2018-03-30] MEDS: LITHIUM CARBONATE 600 MG CAPSULE PO SCH (08:42)
[2018-03-30 16:04] VITALS: BP 133/81
[2018-03-30] MEDS: LORazepam 2 MG TABLET PO PRN (16:39)
[2018-03-30] MEDS: HALOPERIDOL 5 MG TABLET PO PRN (16:39)
[2018-03-30] MEDS: LITHIUM CARBONATE 300 MG CAPSULE PO SCH (16:39)
[2018-03-30] MEDS: OLANZapine 10 MG TABLET PO SCH (20:12)
[2018-03-31 01:35] VITALS: BP 125/78
[2018-03-31] MEDS: LITHIUM CARBONATE 600 MG CAPSULE PO SCH (09:00)
[2018-03-31] MEDS: OLANZapine 5 MG TABLET PO SCH (09:00)
[2018-03-31] MEDS: ARIPiprazole 15 MG TABLET PO SCH (09:00)
[2018-03-31 16:00] VITALS: BP 135/70
[2018-03-31] MEDS: LORazepam 2 MG TABLET PO PRN (16:05)
[2018-03-31] MEDS: LITHIUM CARBONATE 300 MG CAPSULE PO SCH (16:05)
[2018-03-31] MEDS: HALOPERIDOL 5 MG TABLET PO PRN (16:05)
[2018-03-31] MEDS: OLANZapine 10 MG TABLET PO SCH (20:37)
[2018-04-01 06:29] VITALS: BP 133/78
[2018-04-01] MEDS ORDERED: LORazepam 2 MG/ML VIAL IM ONE (07:45)
[2018-04-01] MEDS ORDERED: DiphenhydrAMINE HCL 50 MG/ML VIAL IM ONE (07:45)
[2018-04-01] MEDS ORDERED: HALOPERIDOL LACTATE 5 MG/ML VIAL IM ONE (07:45)
[2018-04-01] MEDS ORDERED: HALOPERIDOL LACTATE 5 MG/ML VIAL ONE (07:47)
[2018-04-01] MEDS ORDERED: LORazepam 2 MG/ML VIAL ONE (07:47)
[2018-04-01] MEDS ORDERED: DiphenhydrAMINE HCL 50 MG/ML VIAL ONE (07:47)
[2018-04-01 08:10] VITALS: BP 143/72
[2018-04-01] MEDS: ARIPiprazole 15 MG TABLET PO SCH (09:00)
[2018-04-01] MEDS: LITHIUM CARBONATE 600 MG CAPSULE PO SCH (09:00)
[2018-04-01] MEDS: OLANZapine 5 MG TABLET PO SCH (09:00)
[2018-04-01] MEDS: HALOPERIDOL 5 MG TABLET PO PRN (16:45)
[2018-04-01] MEDS: LITHIUM CARBONATE 300 MG CAPSULE PO SCH (16:45)
[2018-04-01] MEDS: LORazepam 2 MG TABLET PO PRN (16:45)
[2018-04-01 17:16] VITALS: BP 120/71
[2018-04-01] MEDS: OLANZapine 10 MG TABLET PO SCH (20:52)
[2018-04-02 03:33] VITALS: BP 132/93
[2018-04-02 08:12] VITALS: BP 129/80
[2018-04-02] MEDS: ARIPiprazole 15 MG TABLET PO SCH (08:17)
[2018-04-02] MEDS: LITHIUM CARBONATE 600 MG CAPSULE PO SCH (08:17)
[2018-04-02] MEDS: LORazepam 2 MG TABLET PO PRN ×2 (08:17→16:05)
[2018-04-02] MEDS: OLANZapine 5 MG TABLET PO SCH (08:17)
[2018-04-02] MEDS: HALOPERIDOL 5 MG TABLET PO PRN ×2 (08:18→16:05)
[2018-04-02 16:00] VITALS: BP 135/72
[2018-04-02] MEDS: LITHIUM CARBONATE 300 MG CAPSULE PO SCH (16:05)
[2018-04-02] MEDS: OLANZapine 10 MG TABLET PO SCH (20:25)
[2018-04-03 01:24] VITALS: BP 125/90
[2018-04-03 08:34] VITALS: BP 138/74
[2018-04-03] MEDS: ARIPiprazole 15 MG TABLET PO SCH (08:51)
[2018-04-03] MEDS: LITHIUM CARBONATE 600 MG CAPSULE PO SCH (08:51)
[2018-04-03] MEDS: OLANZapine 5 MG TABLET PO SCH (08:52)
[2018-04-03 16:05] VITALS: BP 129/73
[2018-04-03] MEDS: HALOPERIDOL 5 MG TABLET PO PRN (16:15)
[2018-04-03] MEDS: LORazepam 2 MG TABLET PO PRN (16:15)
[2018-04-03] MEDS: LITHIUM CARBONATE 300 MG CAPSULE PO SCH (16:15)
[2018-04-03] MEDS: OLANZapine 10 MG TABLET PO SCH (20:37)
[2018-04-04] MEDS: HALOPERIDOL 5 MG TABLET PO PRN (08:22)
[2018-04-04] MEDS: OLANZapine 5 MG TABLET PO SCH (08:22)
[2018-04-04] MEDS: ARIPiprazole 15 MG TABLET PO SCH (08:22)
[2018-04-04] MEDS: LORazepam 2 MG TABLET PO PRN (08:22)
[2018-04-04 08:24] VITALS: BP 136/86
[2018-04-04] MEDS: LITHIUM CARBONATE 600 MG CAPSULE PO SCH (08:26)
[2018-04-04] MEDS ORDERED: LITH300C3 PO (09:46)
[2018-04-04] MEDS ORDERED: LITH600 PO (09:46)
[2018-04-04] MEDS ORDERED: OLAN10TA20 PO (09:46)
[2018-04-04] MEDS ORDERED: ARIP15TA2 PO (09:46)
[2018-04-04] MEDS ORDERED: OLAN5TAB27 PO (09:46)
[2018-04-04] MEDS ORDERED: OLAN10TA3 PO (10:46)
[2018-04-04] MEDS ORDERED: OLAN5TAB2 PO (10:48)
== END 2018-04-04 15:12 | disposition home or self-care (01) | DRG 750 ==
LOC: B3A 14:45 → UNDODISIN 03-21 12:15
DX: F25.0 Schizoaffective disorder, bipolar type (principal); F79 Unspecified intellectual disabilities; D64.9 Anemia, unspecified; Z59.0 Homelessness; Z79.899 Other long term (current) drug therapy; Z91.5 Personal history of self-harm
CPT/HCPCS: J1200; J1630; J2060